=== PATIENT | female | born 1970 | race American Indian/Alaskan Native ===

== ENCOUNTER 2017-08-22 09:34 | Observation (INO) | payer OTHER ==
[2017-08-22 09:38] VITALS: BMI 26.7
[2017-08-22] MEDS ORDERED: Sodium Chloride 0.9% 1,000 ML IV STA (09:53)
--- NOTE | 2017-08-22 10:08 | ED PDOC ---
HPI: General Adult Time Seen by Provider: 08/22/17 09:36 Chief Complaint (Nursing): Abnormal Labs Chief Complaint (Provider): Abnormal labs History Per: Patient History/Exam Limitations: no limitations Onset/Duration Of Symptoms: Hrs (today) Current Symptoms Are (Timing): Still Present Recently: Treated By A Physician Additional Complaint(s): Nash Infante is a 47 year old female, with no significant past medical history, who was sent to the emergency department by PMD for outpatient hemoglobin of 5.4. Patient states she has been mildly fatigued recently. She denies any chest pain, shortness of breath, bloody or melanotic stools, and heavy period. No further medical complaints. PMD: Marlo Hatch Past Medical History Reviewed: Historical Data, Nursing Documentation, Vital Signs Vital Signs: Last Vital Signs Temp 98.2 F 08/22/17 09:38 Pulse 76 08/22/17 09:38 Resp 20 08/22/17 09:38 BP 152/80 H 08/22/17 09:38 Pulse Ox 99 08/22/17 10:33 - Medical History PMH: No Chronic Diseases - Surgical History Surgical History: No Surg Hx - Family History Family History: States: Other Other Family History: anemia of unknown type - Social History Current smoker - smoking cessation education provided: No Alcohol: None Drugs: Denies - Home Medications Home Medications: Ambulatory Orders Medication Instructions Recorded No Known Home Med 08/22/17 - Allergies Allergies/Adverse Reactions: Allergies Allergy/AdvReac Type Severity Reaction Status Date / Time No Known Allergies Allergy Verified 08/22/17 09:52 Review of Systems ROS Statement: Except As Marked, All Systems Reviewed And Found Negative Cardiovascular: Negative for: Chest Pain Respiratory: Negative for: Shortness of Breath Gastrointestinal: Negative for: Melena, Hematochezia Physical Exam - Reviewed Nursing Documentation Reviewed: Yes Vital Signs Reviewed: Yes - Physical Exam Appears: Positive for: Well, Non-toxic, No Acute Distress Head Exam: Positive for: ATRAUMATIC, NORMAL INSPECTION, NORMOCEPHALIC Skin: Positive for: Normal Color, Warm, Dry Eye Exam: Positive for: EOMI, PERRL. Negative for: Normal appearance ( conjunctival pallor) Neck: Positive for: Normal (No thyromegaly), Painless ROM, Supple Cardiovascular/Chest: Positive for: Regular Rate, Rhythm. Negative for: Murmur Respiratory: Positive for: Normal Breath Sounds. Negative for: Respiratory Distress Gastrointestinal/Abdominal: Positive for: Normal Exam, Soft. Negative for: Tenderness Extremity: Positive for: Normal ROM (all extremities), Other (pale nail beds). Negative for: Deformity, Swelling Neurologic/Psych: Positive for: Alert, Oriented (x3). Negative for: Motor/ Sensory Deficits - Laboratory Results Result Diagrams: 08/22/17 10:10 08/22/17 10:10 - ECG O2 Sat by Pulse Oximetry: 99 (RA) Pulse Ox Interpretation: Normal Medical Decision Making Medical Decision Making: Initial Plan: --Type and screen --EKG --CMP --Folate --Iron & TIBC --Vitamin b12 --Urine --CBC w/ differential --Reticulocyte count --Sickle cell screen --Chest two views (PA/LAT) [RAD] --Sodium Chloride 1,000 ml IV 100 mls/hr --Urinalysis --Reevaluation -ABO/RH type Scribe Attestation: Documented by Sukhdev Gómez, acting as a scribe for Marlo Henry MD Provider Scribe Attestation: All medical record entries made by the Scribe were at my direction and personally dictated by me. I have reviewed the chart and agree that the record accurately reflects my personal performance of the history, physical exam, medical decision making, and the department course for this patient. I have also personally directed, reviewed, and agree with the discharge instructions and disposition. Disposition - Clinical Impression Clinical Impression: Anemia - Patient ED Disposition Is Patient to be Admitted: Yes - Disposition Disposition Time: 11:19 Condition: FAIR Forms: [employer] (Faroese) - Pt Status Changed To: Hospital Disposition Of: Inpatient - Admit Certification Admit to Inpatient:: After my assessment, the patient will require hospitalization for at least two midnights. This is because of the severity of symptoms shown, intensity of services needed, and/or the medical risk in this patient being treated as an outpatient. - POA Present On Arrival: None
[2017-08-22 10:48] LABS: BASO # 0.2 K/uL (0.0-0.2); BASO % 2.5 % (0.0-2.0); EOS # 0.2 K/uL (0.0-0.7); EOS % 2.6 % (0.0-4.0); LYMPH # 1.4 K/uL (1.0-4.3); MEAN CELL VOLUME 62.3 fl (81.0-99.0); MEAN CORPUSCULAR HGB CONC 28.9 g/dL (33.0-37.0); MEAN PLATELET VOLUME 8.7 fl (7.2-11.7); MONO # 0.6 K/uL (0.0-0.8); MONO % 7.6 % (0.0-10.0); NEUT % 68.3 % (50.0-75.0); NRBC % 0.4 % (0.0-0.0); RBC 2.94 Mil/uL (3.80-5.20); RED CELL DISTRIBUTION WIDTH 31.8 % (11.5-14.5); WHITE BLOOD COUNT 7.3 K/uL (4.8-10.8)
[2017-08-22 10:51] LABS: HEMOGLOBIN 5.3 g/dL (12.0-16.0)
[2017-08-22 10:57] LABS: ALB/GLOB RATIO 1.1 (1.0-2.1); ALBUMIN 3.9 g/dL (3.5-5.0); ALT/SGPT 28 U/L (9-52); AST/SGOT 23 U/L (14-36); BLOOD UREA NITROGEN 11 mg/dl (7-17); CALCIUM 9.2 mg/dL (8.4-10.2); GFR AFRICAN-AMERICAN > 60; GFR NON-AFRICAN AMERICAN > 60
[2017-08-22 11:01] LABS: INR 1.4 (0.9-1.2)
--- NOTE | 2017-08-22 11:06 | RAD ---
HISTORY: Anemia COMPARISON: No prior. TECHNIQUE: Chest PA and lateral FINDINGS: LUNGS: No active pulmonary disease. PLEURA: No significant pleural effusion identified. No pneumothorax apparent. CARDIOVASCULAR: Normal. OSSEOUS STRUCTURES: No significant abnormalities. VISUALIZED UPPER ABDOMEN: Normal. OTHER FINDINGS: None. IMPRESSION: No active disease.
[2017-08-22 11:08] LABS: SQUAMOUS EPITHIAL < 1 /hpf (0-5); URINE BILIRUBIN NEGATIVE (NEGATIVE); URINE BLOOD NEGATIVE (NEGATIVE); URINE CLARITY CLEAR (Clear); URINE COLOR STRAW (YELLOW); URINE GLUCOSE (UA) NEG (Normal); URINE LEUKOCYTE ESTERASE NEG Leu/uL (Negative); URINE PROTEIN NEGATIVE (NEGATIVE); URINE UROBILINOGEN 0.2-1.0 mg/dL (0.2-1.0)
[2017-08-22] MEDS ORDERED: Sodium Chloride 0.9% 100 ML ONE (12:24)
[2017-08-22] MEDS ORDERED: Iohexol 300 100 ML IJ ONE (12:24)
--- NOTE | 2017-08-22 13:20 | CT ---
PROCEDURE: CT Abdomen and Pelvis with contrast HISTORY: Anemia COMPARISON: None. TECHNIQUE: Contrast dose: Omnipaque 300, 95 cc. Radiation dose: Total exam DLP = 593.92 mGy-cm. This CT exam was performed using one or more of the following dose reduction techniques: Automated exposure control, adjustment of the mA and/or kV according to patient size, and/or use of iterative reconstruction technique. FINDINGS: LOWER THORAX: Unremarkable. LIVER: There are a few tiny scattered lucencies in the left and right lobes liver which are under 1 cm size a too small to characterize. 1 cm cyst is seen at the left lobe anteriorly (8 Hounsfield units) with an indeterminate lucency measuring 1.7 cm at the inferomedial right lobe liver measuring 18 Hounsfield units. Further, mild diffusely diminished attenuation seen throughout the liver suggests of hepatic steatosis. No intrahepatic biliary dilatation identified. GALLBLADDER AND BILE DUCTS: Contracted and otherwise unremarkable appearing. PANCREAS: Unremarkable. No gross lesion or ductal dilatation. SPLEEN: Unremarkable. ADRENALS: Unremarkable. No mass. KIDNEYS AND URETERS: Bilateral renal lucencies are scattered in a relatively numerous. The majority are under 1 cm size are too small to characterize. However, there are several which exhibit intermediate density measurements and therefore cannot be characterized as simple cyst. At the upper pole left kidney, there is a 1.8 cm lucency measuring 25 Hounsfield units. At the upper pole right kidney is a 1.9 cm lucency measuring 21 Hounsfield units. At the midpole right kidney anteriorly is a 2.3 cm lucency measuring 19 Hounsfield units and posterior medial to it is a 1.9 cm lucency measuring 19 Hounsfield units as well. Finally a 2.2 cm lucency is seen at the lower pole right kidney measuring 18 Hounsfield units. This lucencies likely reflect benign renal cortical cysts though potentially complicated. A precautionary elective follow-up MRI or CT of the kidneys is recommended without and with contrast, or elective ultrasound of the kidneys. No obstructive uropathy or perinephric reaction bilaterally. No radiodense urolithiasis. VASCULATURE: Unremarkable. No aortic aneurysm. BOWEL: Moderate fecal loading is seen throughout the right hemicolon and is limited throughout the remainder. A umbilical hernia is identified containing a limited amount of small bowel without obvious incarceration pattern evident. No bowel obstruction is appreciated overall. The stomach is collapsed and poorly evaluated. APPENDIX: Normal appendix. PERITONEUM: Unremarkable. No free fluid. No free air. LYMPH NODES: Unremarkable. No enlarged lymph nodes. BLADDER: Decompressed with mural thickening evident. Consider potential cystitis though this is not definite. REPRODUCTIVE: Enlarged uterus identified with numerous small masses related to the myometrium and 1 apparently exophytic off the lower uterine segment laterally suggestive of extensive fibroid disease. BONES: No acute fracture. OTHER FINDINGS: None. IMPRESSION: 1. No definite acute abdominal finding although a small umbilical hernia contains limited small-bowel loops. No definite incarceration pattern appreciable this time. 2. A small right lobe hepatic cysts probably reflects a benign cyst but has slightly elevated density. Consider follow-up elective MRI or CT with and without contrast for additional evaluation or ultrasonography. Similar changes are seen but on a more numerous pattern in the right kidney as well as a solitary lucency at the upper pole left kidney with the same follow-up elective imaging recommendation. 3. Enlarged fibroid uterus noted. 4. Thickened urinary bladder quiñonez may be a function of decompression the cystitis is not excluded. Further clinical correlation is recommended.
[2017-08-22 14:35] LABS: IRON < 10 ug/dL (37-170); TOTAL IRON BINDING CAPACITY 428 ug/dL (250-450)
[2017-08-22 14:36] LABS: % IRON SATURATION 2.3 % (20-55)
[2017-08-22 17:39] LABS: FOLATE > 20.0 ng/mL
[2017-08-23 08:23] LABS: MCH 18.1 pg (27.0-33.0)
--- NOTE | 2017-08-23 08:40 | CP.PCM.CON ---
History of Present Illness - History of Present Illness History of Present Illness: This is a 47 yrs old female who was admitted for anemia. She was brought to her primary doctor's office and was found to have a low hgb and was sent to the ER with c/o some weakness. Her Hgb was found to be 5.3gms wbc 7.3 and platelets 759K. She does not give a history of bleeding from any site, her [id number] according to her were normal, but here in the hospital she is having a period and the nurse told the pt that it was heavy. Pt's mother recently of anemia , and her sister has anemia too. She has no abdominal pain, and no hgb electrophoresis has ever been done. retic count was 3.4, iron<30, sat 2.3%, and ferritin is only 3.0. Her B12 is normal but the sickle prep is normal. A hgb electrophoresis hqas been ordered. the ct scan of the abdomen showed a couple of ?cysts in the liver and in the kidneys. She also has a fibroid of the uterus. The radiologist has suggested a MRI of the abdomen to clarify the lesions in the liver and kidneys. No significant medical problems Pt is a non smoker and does not drink, Family history; Mother of anemia and younger sister is also anemic Past Patient History - Past Medical History & Family History Past Medical History?: No - Past Social History Smoking Status: Never Smoked - CARDIAC Hx Cardiac Disorders: No - PULMONARY Hx Respiratory Disorders: No - NEUROLOGICAL Hx Neurological Disorder: No - HEENT Hx HEENT Problems: No - RENAL Hx Chronic Kidney Disease: No - ENDOCRINE/METABOLIC Hx Endocrine Disorders: No - HEMATOLOGICAL/ONCOLOGICAL Hx Blood Disorders: Yes (anemia) - INTEGUMENTARY Hx Dermatological Problems: No - MUSCULOSKELETAL/RHEUMATOLOGICAL Hx Musculoskeletal Disorders: No Hx Falls: No - GENITOURINARY/GYNECOLOGICAL Hx Genitourinary Disorders: No - PSYCHIATRIC Hx Psychophysiologic Disorder: No Hx Substance Use: No - SURGICAL HISTORY Hx Surgeries: No - ANESTHESIA Hx Anesthesia: No Meds Allergies/Adverse Reactions: Allergies Allergy/AdvReac Type Severity Reaction Status Date / Time No Known Allergies Allergy Verified 08/22/17 09:52 - Medications Medications: Current Medications Docusate Sodium (Colace) 200 mg PO DAILY PRN PRN Reason: Constipation Ferrous Sulfate (Feosol) 325 mg PO BID SHANE Physical Exam - Additional Findings Additional findings: Physical exam; Alert, well oriented in no acute distress neck supple, no adenopathy Chest; Clear, no rales or rhonchi Heart; RSR, no murmur Abd; soft, no mass, no h/s megaly Results - Vital Signs Recent Vital Signs: Last Vital Signs Temp 98.1 F 08/23/17 08:03 Pulse 55 L 08/23/17 08:03 Resp 20 08/23/17 08:03 BP 129/65 08/23/17 08:03 Pulse Ox 100 08/23/17 08:03 - Labs Result Diagrams: 08/22/17 10:10 08/22/17 10:10 Labs: Laboratory Results - last 24 hr 08/22/17 08/22/17 08/22/17 10:00 10:10 10:10 WBC 7.3 RBC 2.94 L Hgb 5.3 L* Hct 18.3 L MCV 62.3 L MCH 18.0 L MCHC 28.9 L RDW 31.8 H Plt Count 759 H MPV 8.7 Neut % (Auto) 68.3 Lymph % (Auto) 19.0 L Gila % (Auto) 7.6 Eos % (Auto) 2.6 Baso % (Auto) 2.5 H Neut # (Auto) 5.0 Lymph # (Auto) 1.4 Gila # (Auto) 0.6 Eos # (Auto) 0.2 Baso # (Auto) 0.2 Retic Count Sickle Cell Screen Hemoglobinopathy Red Blood Count Hemoglobinopathy Hct Hemoglobinopathy Hgb Hemoglobinopathy MCV Hemoglobinopathy MCH Hemoglobinopathy RDW PT INR Sodium 144 Potassium 4.0 Chloride 105 Carbon Dioxide 26 Anion Gap 17 BUN 11 Creatinine 0.8 Est GFR ( Amer) > 60 Est GFR (Non-Af Amer) > 60 Random Glucose 98 Calcium 9.2 Iron < 10 L TIBC 428 % Saturation 2.3 L Ferritin Total Bilirubin 0.5 AST 23 ALT 28 Alkaline Phosphatase 45 Total Protein 7.6 Albumin 3.9 Globulin 3.6 Albumin/Globulin Ratio 1.1 Vitamin B12 > 1000 H Folate > 20.0 Urine Color Urine Clarity Urine pH Ur Specific Ruston Urine Protein Urine Glucose (UA) Urine Ketones Urine Blood Urine Nitrate Urine Bilirubin Urine Urobilinogen Ur Leukocyte Esterase Urine RBC (Auto) Urine Microscopic WBC Ur Squamous Epith Cells Blood Type Blood Type Confirm Antibody Screen Crossmatch BBK History Checked 08/22/17 08/22/17 08/22/17 10:10 10:10 10:10 WBC RBC Hgb Hct MCV MCH MCHC RDW Plt Count MPV Neut % (Auto) Lymph % (Auto) Gila % (Auto) Eos % (Auto) Baso % (Auto) Neut # (Auto) Lymph # (Auto) Gila # (Auto) Eos # (Auto) Baso # (Auto) Retic Count 3.4 H Sickle Cell Screen Hemoglobinopathy Red Blood Count Hemoglobinopathy Hct Hemoglobinopathy Hgb Hemoglobinopathy MCV Hemoglobinopathy MCH Hemoglobinopathy RDW PT INR Sodium Potassium Chloride Carbon Dioxide Anion Gap BUN Creatinine Est GFR ( Amer) Est GFR (Non-Af Amer) Random Glucose Calcium Iron Cancelled TIBC Cancelled % Saturation Cancelled Ferritin Total Bilirubin AST ALT Alkaline Phosphatase Total Protein Albumin Globulin Albumin/Globulin Ratio Vitamin B12 Folate Urine Color Urine Clarity Urine pH Ur Specific Ruston Urine Protein Urine Glucose (UA) Urine Ketones Urine Blood Urine Nitrate Urine Bilirubin Urine Urobilinogen Ur Leukocyte Esterase Urine RBC (Auto) Urine Microscopic WBC Ur Squamous Epith Cells Blood Type O NEGATIVE Blood Type Confirm Antibody Screen Negative Crossmatch See Detail BBK History Checked No verified bt 08/22/17 08/22/17 08/22/17 10:10 10:25 10:39 WBC RBC Hgb Hct MCV MCH MCHC RDW Plt Count MPV Neut % (Auto) Lymph % (Auto) Gila % (Auto) Eos % (Auto) Baso % (Auto) Neut # (Auto) Lymph # (Auto) Gila # (Auto) Eos # (Auto) Baso # (Auto) Retic Count Sickle Cell Screen Positive H Hemoglobinopathy Red Blood Count Hemoglobinopathy Hct Hemoglobinopathy Hgb Hemoglobinopathy MCV Hemoglobinopathy MCH Hemoglobinopathy RDW PT 16.0 H INR 1.4 H Sodium Potassium Chloride Carbon Dioxide Anion Gap BUN Creatinine Est GFR ( Amer) Est GFR (Non-Af Amer) Random Glucose Calcium Iron TIBC % Saturation Ferritin Total Bilirubin AST ALT Alkaline Phosphatase Total Protein Albumin Globulin Albumin/Globulin Ratio Vitamin B12 Folate Urine Color Urine Clarity Urine pH Ur Specific Rust[place] Urine Protein Urine Glucose (UA) Urine Ketones Urine Blood Urine Nitrate Urine Bilirubin Urine Urobilinogen Ur Leukocyte Esterase Urine RBC (Auto) Urine Microscopic WBC Ur Squamous Epith Cells Blood Type Blood Type Confirm O NEGATIVE Antibody Screen Crossmatch BBK History Checked 08/22/17 08/22/1718 10:50 12:06 12:06 WBC RBC Hgb Hct MCV MCH MCHC RDW Plt Count MPV Neut % (Auto) Lymph % (Auto) Gila % (Auto) Eos % (Auto) Baso % (Auto) Neut # (Auto) Lymph # (Auto) Gila # (Auto) Eos # (Auto) Baso # (Auto) Retic Count Sickle Cell Screen Hemoglobinopathy Red Blood Count 2.93 L Hemoglobinopathy Hct 18.8 L Hemoglobinopathy Hgb 5.3 L Hemoglobinopathy MCV 64.0 L Hemoglobinopathy MCH 18.1 L Hemoglobinopathy RDW 32.6 H PT INR Sodium Potassium Chloride Carbon Dioxide Anion Gap BUN Creatinine Est GFR ( Amer) Est GFR (Non-Af Amer) Random Glucose Calcium Iron TIBC % Saturation Ferritin 3.0 L Total Bilirubin AST ALT Alkaline Phosphatase Total Protein Albumin Globulin Albumin/Globulin Ratio Vitamin B12 Folate Urine Color Straw Urine Clarity Clear Urine pH 7.0 Ur Specific Ruston 1.005 Urine Protein Negative Urine Glucose (UA) Neg Urine Ketones Negative Urine Blood Negative Urine Nitrate Negative Urine Bilirubin Negative Urine Urobilinogen 0.2-1.0 Ur Leukocyte Esterase Neg Urine RBC (Auto) 1 Urine Microscopic WBC 1 Ur Squamous Epith Cells < 1 Blood Type Blood Type Confirm Antibody Screen Crossmatch BBK History Checked Assessment & Plan - Assessment and Plan (Free Text) Assessment: Impression; Severe microcytic anemia secondary to iron deficiency and maybe a hemoglobinopathy Have to r/o masses in the kidney and liver as suggested by the radiologist Plan: Plan; Have started her on iron feosol bid. awaiting her result from the transfusion to see if she needs more transfusions. MRI of the liver and kidneys. - Date & Time Date: 08/23/17 Time: 09:06
[2017-08-23 09:39] LABS: HEMOGLOBIN 8.1 g/dL (12.0-16.0); MEAN CELL VOLUME 68.4 fl (81.0-99.0); MEAN CORPUSCULAR HGB CONC 30.7 g/dL (33.0-37.0); RBC 3.87 Mil/uL (3.80-5.20); RED CELL DISTRIBUTION WIDTH 34.1 % (11.5-14.5); WHITE BLOOD COUNT 9.4 K/uL (4.8-10.8)
--- NOTE | 2017-08-23 10:07 | CARD ---
APPROVED REPORT EKG Measurement Heart [id number] <Conclusion> Normal sinus rhythm Normal ECG
[2017-08-23] MEDS ORDERED: Gadodiamide 287 MG/ML VIAL (15ML) IV ONE (16:31)
[2017-08-23] MEDS ORDERED: Sodium Chloride 0.9% 100 ML ONE (16:31)
--- NOTE | 2017-08-23 17:26 | US ---
HISTORY: R/O cyst in liver and kidney COMPARISON: None available. TECHNIQUE: Transabdominal FINDINGS: UTERUS: Measures 10.7 x 5.0 x 6.9 cm. Mid to lower left uterine fibroid, 3.1 x 2.9 x 3.7 cm. Mid uterine fibroid, 3.3 x 2.7 x 3.4 cm. ENDOMETRIUM: Measures 7 mm in diameter. Unremarkable. CERVIX: No cervical abnormality identified. RIGHT OVARY: Measures 1.8 x 1.6 x 3.4 cm. No solid mass. Normal flow. LEFT OVARY: Measures 2.3 x 1.6 x 3.1 cm. No solid mass. Normal flow. FREE FLUID: No significant free fluid noted. OTHER FINDINGS: None. IMPRESSION: Two uterine fibroids. Otherwise unremarkable.
[2017-08-24 08:43] VITALS: PULSE 61
[2017-08-24 12:24] VITALS: BP 142/85; RESP 16; TEMP 98; O2SAT 100
[2017-08-26 05:59] LABS: HEMOGLOBIN A 97.3 Percent (>96.0); HEMOGLOBIN A2 1.7 Percent (1.8-3.5)
--- NOTE | 2017-08-26 10:06 | MRI ---
PROCEDURE: MRI Abdomen with and without contrast HISTORY: Multiple hepatic and bilateral renal lesions. COMPARISON: Abdomen pelvis CT with contrast 08/22/2017. TECHNIQUE: Multisequence, multiplanar MR images of the abdomen with and without gadolinium contrast enhancement. FINDINGS: LIVER: There are multiple small foci in the left and right lobes liver which exhibit fluid signal intensity throughout all sequences and do not enhance. Several of these are too small to characterize however a 9 mm lesion in the right lobe liver near the dome and a 1.1 cm lesion at the left lobe anteriorly do not enhance and are credit representative of cysts, apparently simple. The liver otherwise appears unremarkable. GALLBLADDER: Unremarkable. SPLEEN: Unremarkable. PANCREAS: Unremarkable. ADRENALS: Unremarkable. KIDNEYS: Similar to the liver, there are multiple cysts which are more numerous in the right than the left kidney with both kidneys exhibiting more cysts than seen in the liver. None of these foci exhibit significant enhancement however there are numerous tiny foci in both kidneys too small to characterize. The dominant right renal cyst is seen at the midpole anteriorly measuring 2.5 cm in the dominant left renal cyst is identified at the upper pole medially measuring 2.0 cm. All appear simple in character. AORTA: No aneurysm. ASCITES: None. PERITONEUM: Unremarkable. LYMPH NODES: Unremarkable. OTHER FINDINGS: Incidental fibroid noted in the submucous uterus. IMPRESSION: Benign cystic changes seen the liver and bilateral kidneys as discussed above without, creation or mass related. None appear to enhance. Note, multiple sub cm foci are scattered in both kidneys and infrequently in the liver as well, too small to characterize. Incidental fibroid noted in submucous uterus. Please see separate trans abdominal pelvic ultrasound also performed 08/23/2017. Concordant preliminary report from [facility], 08/23/2017.
== END 2017-08-24 13:30 | disposition home or self-care (01) ==
LOC: H.ER 09:34 → H.ERHOLD 11:51 → INTOOBSV 11:51 → H.TEL 13:35
PROVIDERS: ADMIT Specialist; ATTEND Specialist
DX: D50.9 Iron deficiency anemia, unspecified (principal); D25.9 Leiomyoma of uterus, unspecified
CPT/HCPCS: 36415; 36430; 71046; 74177; 74183; 76856; 80053; 81003; 81025; 82607; 82728; 82746; 83021; 83540; 83550; 85014; 85018; 85025; 85027; 85041; 85044; 85610; 85660; 86850; 86900; 86920; 93005; 99285; A9579; G0378; J1756; J7040; P9051; Q9967